=== PATIENT | male | born 1950 | race Caucasian/White ===

== ENCOUNTER 2019-04-21 11:39 | Emergency (ER) | payer OTHER ==
[~2019-04-21] VITALS: Ht 182.9 cm; Wt 72.7 kg
[2019-04-21 11:42] VITALS: Ht 182.9 cm; Wt 72.7 kg
[2019-04-21] MEDS ORDERED: LISINOPRIL20 MG PO (11:44)
[2019-04-21] MEDS ORDERED: HYDROCODON-ACE1 EAC2 PO (13:51)
[2019-04-21] MEDS ORDERED: ANALPRAM HC 2.530 GM RC (13:51)
[2019-04-21 14:08] VITALS: BP 131/65
[2019-04-24 08:52] VITALS: Ht 182.9 cm; Wt 72.7 kg
== END 2019-04-21 14:08 | disposition home or self-care (01) ==
LOC: D.ER 11:39
DX: K64.5 Perianal venous thrombosis (principal); I10 Essential (primary) hypertension

== ENCOUNTER 2019-04-24 08:00 | Day surgery (SDC) | payer OTHER ==
[2019-04-23 12:18] LABS: HEMATOCRIT 39.7 % (42.0-54.0); HEMOGLOBIN 13.4 g/dL (13.5-17.5); MCHC 33.8 g/dL (31.0-37.0); MCV 97.8 fL (80.0-100.0); MEAN PLATELET VOLUME 9.7 fL (7.4-10.4); RBC 4.06 10x6/uL (4.20-6.10); RDW 12.7 % (11.5-14.5); WBC 5.1 10x3/uL (4.8-10.8)
[~2019-04-24] VITALS: Ht 182.9 cm; Wt 72.6 kg
[~2019-04-24 08:00] MED LIST: ANALPRAM HC 2.530 GM RC; HYDROCODON-ACE1 EAC2 PO; LISINOPRIL20 MG PO
[2019-04-24] MEDS ORDERED: DILAUDID2 MG PO (08:42)
[2019-04-24 08:52] VITALS: BP 121/72; Ht 182.9 cm; Wt 72.6 kg
--- NOTE | 2019-04-24 14:29 | NUR ---
1234 PT REPORTS PAIN IN SURGICAL SITE AT 7 OUT OF 10. REQUESTING PAIN MEDICATION.
--- NOTE | 2019-04-24 16:06 | NUR ---
1310 PT REPORTS PAIN LEVEL AT 5.5 OUT OF 10 ON THE PAIN SCALE. 1400 PT HAS BEEN UP SEVERAL TIMES TO ATTEMPT TO VOID. HE STATES THAT HE HAS BEEN HAVING DIFFICULTY VOIDING FOR THE PAST 2 WEEKS. HE IS SCHEDULED FOR A PROSTATE BX NEXT MONTH. DR MACEDO ORDERED A RICE CATHETER FOR PT IF UNABLE TO VOID. WILL GIVE PT MORE TIME TO TRY TO URINATE. PT FEELS LIKE HE IS CLOSE TO URINATING. 1440 PT HAS NOT VOIDED. BLADDER SCAN PERFORMED. URINE RETENTION IS 520 CC. PT WANTS A LITTLE MORE TIME TO VOID. 1515 PT AGREES TO HAVING A RICE CATHETER. STATES HE FEELS FULL AND UNCOMFORTABLE. 16 FR RICE CATHETER INSERTED WITHOUT DIFFICULTY. 450CC CLEAR YELLOW URINE DRAINED INTO CLOSED DRAINAGE SYSTEM. PT STATES HE "FEELS MUCH BETTER" AFTER INSERTION OF RICE CATHETER. HIS CAREGIVER (COUSIN WHO IS A RN) WILL REMOVE RICE ON SATURDAY. PT AGREES TO THIS AND STATES HE FEELS LIKE HE CAN GET SOME REST NOW THAT HE ISN'T TRYING SO HARD TO URINATE. 1550 PT ASKING FOR VAL[address]. DR MACEDO ORDERED THIS TO HELP REDUCE ANY RECTAL SPASMS. 1600 PT CHEERFUL AND READY TO GO HOME. VSS. PT VOICES UNDERSTANDING OF DISCHARGE INSTRUCTIONS WELL HIS CAREGIVER.
--- NOTE | 2019-04-30 16:35 | HP ---
PATIENT: RODERICK ENGLE MEDICAL RECORD: [id number] ACCOUNT: [id number] LOCATION:[facility] : 48 ADMISSION DATE: 04/24/19 PCP: MAYA MACEDO MD HISTORY AND PHYSICAL EXAMINATION CHIEF COMPLAINT: Hemorrhoids. HISTORY OF PRESENT ILLNESS: I saw the patient in my office yesterday. He has a circumferential grade IV internal anal prolapse. He is here for a procedure for prolapse and hemorrhoids, possible hemorrhoidectomy. The risks, possible complications and alternatives to the procedure were explained to the patient. He elects to proceed. PAST MEDICAL AND SURGICAL HISTORY: Hypertension, appendectomy, inguinal hernia repair. HOME MEDICATIONS: Please see the nursing list. ALLERGIES: No known drug allergies. REVIEW OF SYSTEMS: No nausea, no vomiting. Positive for urinary retention, which is a partial urinary retention PHYSICAL EXAMINATION: GENERAL: The patient does appear acutely ill. He does not appear chronically ill. VITAL SIGNS: Reviewed. EARS: External ears appear normal. EYES: Extraocular movements are intact. NECK: Trachea is midline. CHEST: No intercostal retractions. PULMONARY: Nonlabored, no stridor. ANAL: As described above. IMPRESSION: Circumferential grade IV internal hemorrhoidal prolapse of the anus. PLAN: Procedure for prolapse and hemorrhoids, possible hemorrhoidectomy. TRANSINT:[id number] Voice Confirmation ID: [id number] DOCUMENT ID: [id number] cc: Dr. Aguilar, unknown MAYA MACEDO MD at 1635 CC: [id number] DICTATION DATE: 04/24/19 1504 ACCOUNT DEVELOPMENT ASSOCIATE: 04/24/19 1524 [facility] 04/24/19 [id number] [place] [address]
--- NOTE | 2019-04-30 16:43 | OP ---
PATIENT NAME: RODERICK ENGLE MEDICAL RECORD: [id number] :48 LOCATION:[facility] ADMISSION DATE: SURGEON: RAFAEL MACEDO MD DATE OF OPERATION: 04/24/2019 PREOPERATIVE DIAGNOSIS: Fourth degree circumferential internal prolapse of the anus. POSTOPERATIVE DIAGNOSES: Fourth degree circumferential internal prolapse of the anus with one episode of gangrene. PROCEDURE: Procedure for prolapse and hemorrhoids. SURGEON: Rafael Macedo MD CAR SALESPERSON: None. BLOOD LOSS: Minimal. ANESTHESIA: General. COMPLICATIONS: None. The risks, possible complications, and alternatives to the procedure were explained to the patient. He elects to proceed. The discussion specifically included, but was not limited to bleeding requiring emergency reoperation, infection, colostomy formation as well as possible need for additional hemorrhoid procedure or procedures in the future. OPERATIVE COURSE: The patient was conveyed to the operating room electively on 04/24/2019. General anesthesia was induced by anesthesia staff. The patient was placed in the lithotomy position with the buttocks taped laterally. The anus and perianal areas were sterilely prepped and draped. I was able to forcefully manually reduce the internal hemorrhoids; however, they kept popping out through the anus. The PPH dilator retractor was then placed and sutured to the surrounding anoderm with 2-0 silks. A mucosal pursestring suture of 2-0 Prolene was applied 1 cm cephalad to the clear retractor. The stapling device was inserted with the anvil cephalad to the pursestring suture, which was then tightened and tied. This stapling device was engaged. It was held in place for 2 minutes and then fired. The stapling device was removed. There was a circumferential donut of hemorrhoidal and lower rectal mucosal tissue within the stapling device. Bleeding along the anastomotic mucosal staple line was controlled with [id number] 3-0 Vicryls. A combination of Marcaine and steroid preparation were used to infiltrate the perianal tissues. The clear retractor was removed. The U-shaped anal retractors were placed. There was still one enlarged hemorrhoid at 12 o'clock and this was suture ligated. There were 2 skin tags, one at 12 o'clock and the other at 3 o'clock. These were removed with the Harmonic scalpel and these sites were then closed with horizontal mattress 3-0 Vicryl sutures. Gelfoam was applied within the anus and lower rectum. An anesthetic cream was applied to the external hemorrhoids. The patient was then extubated and conveyed to post-anesthesia care unit where he was in stable condition. He will be dismissed home on Valium as well as OPERATIVE REPORT [id number] RODERICK ENGLE and Evens. I will see him in the office in 2-3 weeks. I have given him his discharge instructions verbally. TRANSINT:[id number] Voice Confirmation ID: [id number] DOCUMENT ID: [id number] cc: Dr. Aguilar, unknown doctor. RAFAEL MACEDO MD at 1643 CC: [id number] DICTATION DATE: 04/24/19 1206 ARTIFICIAL PEARL MAKER: 04/24/19 1327 [facility] 04/24/19 [id number] [place] [address]
== END 2019-04-24 16:00 | disposition home or self-care (01) ==
LOC: D.OPS 08:00 → D.PAN 10:00 → D.OPS 11:45
PROVIDERS: Anesthesiology; ATTEND Surgery
DX: K62.2 Anal prolapse (principal); I10 Essential (primary) hypertension; K64.3 Fourth degree hemorrhoids